=== PATIENT | male | born 1965 | race Caucasian/White ===

== ENCOUNTER 2020-01-19 16:49 | Emergency (ER) | payer SELFPAY ==
[2020-01-20] MEDS ORDERED: MIRT30 PO (11:49)
[2020-01-20] MEDS ORDERED: IMIPRAMINE HCL PO (11:50)
[2020-01-20] MEDS ORDERED: WIXELA 250-501 EACH INH (13:55)
[2020-01-22] MEDS ORDERED: CEPH500 PO (14:09)
== END 2020-01-19 17:15 | disposition left against medical advice (07) ==
LOC: ER 16:49
DX: Z53.21 Procedure and treatment not carried out due to patient leaving prior to being seen by health care provider (principal)